=== PATIENT | male | born 1990 | race Caucasian/White ===

== ENCOUNTER 2018-07-03 13:14 | Inpatient (IN) | payer OTHER ==
[2018-07-03 15:27] VITALS: BMI 32.8
--- NOTE | 2018-07-03 18:29 | HP ---
COWS - Scale Resting Pulse: 2= [place] 101-120 Sweatin= No chills or Flushing Restless Observation: 1= Difficult to Sit Still Pupil Size: 1= Pupils >than Normal Bone or Joint Aches: 1= Mild Discomfort Runny Nose/ Eye Tearin= Nasal Congestion GI Upset > 30mins: 2= Nausea/Diarrhea Tremor Observation: 1= Tremor [place], Not Seen Yawning Observation: 4= Several Times/Minute Anxiety or Irritability: 0= None Goose Flesh Skin: 0=Smooth Skin COWS Score: 13 CIWA Score - Admission Criteria OAS Guidelines: Admission for Medically Managed Detox: Requires at least one of the followin. CIWA greater than 12 2. Seizures within the past 24 hours 3. Delirium tremens within the past 24 hours 4. Hallucinations within the past 24 hours 5. Acute intervention needed for co occurring medical disorder 6. Acute intervention needed for co occurring psychiatric disorder 7. Severe withdrawal that cannot be handled at a lower level of care (continued vomiting, continued diarrhea, abnormal vital signs) requiring intravenous medication and/or fluids 8. Admission ROS [facility] Chief Complaint: " I want to detox from heroin" Allergies/Adverse Reactions: Allergies Allergy/AdvReac Type Severity Reaction Status Date / Time No Known Allergies Allergy Verified 07/03/18 18:00 History of Present Illness: Patient is a 28 yo make with hx of nicotine, intravenous heroin, marijuana dependence is here seeking detox. Last detox September 2017 at [facility]. Denies medical problems, reports hx of depression and anxiety. Denies suicidal / homicidal idation or suicide attempts. Overdose x 5, last episode one year ago. Denies hx of seizures or blackouts. thers' Prescriptions Patient Name: Shan Escobar Date: 1990 Address: [facility] [address] [place], [place] [id number] Sex: Male Rx Written Rx Dispensed Drug Quantity Days Supply Prescriber Name 06/27/2018 06/27/2018 clonazepam 0.5 mg tablet 30 15 Ken, Ernesto 06/20/2018 06/21/2018 buprenorphine-naloxone 2-0.5 mg sl tablet 60 30 Ken, Ernesto 05/28/2018 05/28/2018 clonazepam 0.5 mg tablet 60 30 Ken, Ernesto 04/24/2018 04/24/2018 clonazepam 0.5 mg tablet 60 30 Ken, Ernesto 03/26/2018 03/26/2018 clonazepam 0.5 mg tablet 60 30 Ken, Ernesto 02/28/2018 02/28/2018 clonazepam 0.5 mg tablet 60 30 Ken, Ernesto 02/01/2018 02/01/2018 clonazepam 0.5 mg tablet 60 30 Ken, Ernesto Exam Limitations: No Limitations - Ebola screening Have you traveled outside of the country in the last 21 days: No Have you had contact with anyone from an Ebola affected area: No Have you been sick,other than usual withdrawal symptoms: No - Review of Systems Constitutional: Loss of Appetite, Changes in sleep, Weakness, Unintentional Wgt. Loss (30 lbs in past three months) EENT: reports: Nose Congestion Respiratory: reports: No Symptoms reported Cardiac: reports: No Symptoms Reported GI: reports: Diarrhea, Poor Appetite, Poor Fluid Intake : reports: No Symptoms Reported Musculoskeletal: reports: Back Pain Integumentary: reports: No Symptoms Reported Neuro: reports: No Symptoms reported Endocrine: reports: Increased Thirst Hematology: reports: No Symptoms Reported Psychiatric: reports: Orientated x3, Anxious Other Systems: Reviewed and Negative Patient History - Patient Medical History Hx Anemia: No Hx Asthma: No Hx Chronic Obstructive Pulmonary Disease (COPD): No Hx Cancer: No Hx Cardiac Disorders: No Hx Congestive Heart Failure: No Hx Hypertension: No Hx Hypercholesterolemia: No Hx Pacemaker: No HX Cerebrovascular Accident: No Hx Seizures: No Hx Dementia: No Hx Diabetes: No Hx Gastrointestinal Disorders: No Hx Liver Disease: No Hx Genitourinary Disorders: No Hx Sexually Transmitted Disorders: No Hx Renal Disease (ESRD): No Hx Thyroid Disease: No Hx Human Immunodeficiency Virus (HIV): No Hx Hepatitis C: No Hx Depression: Yes Hx Suicide Attempt: No Hx Bipolar Disorder: No Hx Schizophrenia: No - Patient Surgical History Past Surgical History: Yes Hx Neurologic Surgery: No Hx Cataract Extraction: No Hx Cardiac Surgery: No Hx Lung Surgery: No Hx Breast Surgery: No Hx Breast Biopsy: No Hx Abdominal Surgery: No Hx Appendectomy: Yes Hx Cholecystectomy: No Hx Genitourinary Surgery: No Hx Section: No Hx Orthopedic Surgery: No Hx Hysterectomy: No Other Surgical History: circumcision at 5 yo Anesthesia Reaction: No - PPD History Previous Implant?: Yes Documented Results: Negative w/o proof PPD to be Administered?: Yes - Smoking Cessation Smoking history: Current every day smoker Have you smoked in the past 12 months: Yes Aproximately how many cigarettes per day: 10 Hx Chewing Tobacco Use: No Initiated information on smoking cessation: Yes 'Breaking Loose' booklet given: 07/03/18 - Substance & Tx. History Hx Alcohol Use: Yes Hx Substance Use: Yes Substance Use Type: Heroin, Marijuana Hx Substance Use Treatment: Yes (Detox [facility] September 2017) - Substances Abused Heroin Route: Injection Frequency: Daily Amount used: 10 BAGS Age of first use: 22 Date of Last Use: 07/03/18 Marijuana/Hashish Route: Smoking Frequency: Daily Amount used: 2 BLUNTS Age of first use: 16 Date of Last Use: 07/03/18 Family Disease History - Family Disease History Family History: Denies Admission Physical Exam [facility] - Vital Signs Vital Signs: Vital Signs - 24 hr 07/03/18 15:26 Temperature 98 F Pulse Rate 94 H Respiratory 20 Rate Blood Pressure 107/62 - Physical General Appearance: Yes: Appropriately Dressed, Mild Distress, Obese, Sweating, Anxious HEENTM: Yes: EOMI, Hearing grossly Normal, Normal ENT Inspection, Normocephalic , Normal Voice, SISI, Pharynx Normal, Rhinorrhea Respiratory: Yes: Chest Non-Tender, Lungs Clear, Normal Breath Sounds, No Respiratory Distress, No Accessory Muscle Use Neck: Yes: Within Normal Limits Breast: Yes: Breast Exam Deferred Cardiology: Yes: Regular Rhythm, Regular Rate Abdominal: Yes: Normal Bowel Sounds, Non Tender, Flat, Soft Genitourinary: Yes: Within Normal Limits Back: Yes: Normal Inspection Musculoskeletal: Yes: full range of Motion, Gait Steady, Pelvis Stable Extremities: Yes: Within Normal Limits Neurological: Yes: material chaser II-XII NML intact, Fully Oriented, Alert, Motor Strength 5/5, Depressed Affect Integumentary: Yes: Normal Color, Diaphoresis, Track [place] (bilateral anticubital fossa, no infection) - Diagnostic (1) Opioid dependence with withdrawal Current Visit: Yes Status: Acute (2) Nicotine dependence Current Visit: Yes Status: Acute Qualifiers: Nicotine product type: cigarettes (3) Cannabis dependence Current Visit: Yes Status: Acute (4) IVDU (intravenous drug user) Current Visit: Yes Status: Acute Cleared for Admission [facility] - Detox or Rehab [facility] Level of Care: Medically Managed Detox Regimen/Protocol: Methadone BHS Breath Alcohol Content Breath Alcohol Content: 0 Urine Drug Screen - Results Drug Screen Negative: No Urine Drug Screen Results: THC-Marijuana, OPI-Opiates, FEN-Fentanyl Inpatient Rehab Admission - Rehab Decision to Admit Inpatient rehab admission?: No
[2018-07-03] MEDS ORDERED: MENTHOL/PHENOL 1 EACH UD MM PRN (18:37)
[2018-07-03] MEDS ORDERED: MAGNESIUM CITRATE 300 ML BOTTLE PO PRN (18:37)
[2018-07-03] MEDS ORDERED: IBUPROFEN 400 MG TABLET (FP) PO PRN (18:37)
[2018-07-03] MEDS ORDERED: NICOTINE POLACRILEX 2 MG GUM BUC PRN (18:37)
[2018-07-03] MEDS ORDERED: MAGNESIUM HYDROX 2400MG/30ML ORAL SUSPENSION 30 ML CUP PO PRN (18:37)
[2018-07-03] MEDS ORDERED: METHOCARBAMOL 500 MG TABLET PO PRN (18:37)
[2018-07-03] MEDS ORDERED: cloNIDine HCL 0.1 MG TABLET PO PRN (18:37)
[2018-07-03] MEDS ORDERED: ACETAMINOPHEN 325 MG TABLET (FP) PO PRN ×2 (18:37)
[2018-07-03] MEDS ORDERED: METHADONE HCL 10 MG TABLET (FOR DETOX USE ONLY) PO ONE ×2 (19:30→23:00)
[2018-07-03] MEDS: MELATONIN 5 MG TABLETS PO PRN (22:19)
[2018-07-03] MEDS: THIAMINE HCL 100 MG TABLET (FP) PO SCH (22:19)
[2018-07-04] MEDS: MAG HYDROX/AL HYDROX/SIMETH 30 ML UNIT-DOSE CUP PO PRN ×2 (09:49→17:22)
[2018-07-04] MEDS ORDERED: METHADONE HCL 10 MG TABLET (FOR DETOX USE ONLY) PO ONE (10:00)
[2018-07-04] MEDS: PRENATAL VITAMINS W/ FOLIC ACID TABLET (FP) PO SCH (10:03)
[2018-07-04] MEDS: hydrOXYzine PAMOATE 25 MG CAPSULE (FP) PO PRN (10:04)
[2018-07-04] MEDS: NICOTINE 14 MG/24 HOURS TOPICAL PATCH TD SCH (10:04)
[2018-07-04 11:37] LABS: HEMATOCRIT 35.2 % (35.4-49); HEMOGLOBIN 11.9 GM/dL (11.7-16.9); MCH 28.2 pg (25.7-33.7); MCHC 33.8 g/dl (32.0-35.9); MEAN CELL VOLUME 83.5 fl (80-96); MEAN PLT VOLUME 7.8 fl (7.5-11.1); PLATELET COUNT 191 K/MM3 (134-434); RBC 4.22 M/mm3 (4.00-5.60); RDW 12.9 % (11.9-15.9); WHITE BLOOD COUNT 6.4 K/mm3 (4.0-10.0)
[2018-07-04] MEDS: clonazePAM 0.5 MG TABLET PO PRN ×2 (11:43→17:58)
--- NOTE | 2018-07-04 12:02 | EKG ---
Test Reason : Blood Pressure : / mmHG Vent. Rate : 066 BPM Atrial Rate : 066 BPM P-R Int : 156 ms QRS Dur : 094 ms QT Int : 404 ms P-R-T Axes : 059 042 032 degrees QTc Int : 423 ms NORMAL SINUS RHYTHM NORMAL ECG NO PREVIOUS ECGS AVAILABLE Confirmed by DIVINA KENNEY, HAL ([id number]) on 07/04/2018 12:02:41 PM Referred By: Confirmed By:HAL MURCIA MD
[2018-07-04 12:05] LABS: ALK PHOS 46 U/L (45-117); ANION GAP 7 MMOL/L (8-16); BILIRUBIN,TOTAL 0.4 mg/dL (0.2-1); BLOOD UREA NITROGEN 9 mg/dL (7-18); CALCIUM 8.3 mg/dL (8.5-10.1); CHLORIDE 105 mmol/L (98-107); CO2 27 mmol/L (21-32); CREATININE 0.6 mg/dL (0.55-1.3); GLUCOSE,RANDOM 87 mg/dL (74-106); POTASSIUM 3.8 mmol/L (3.5-5.1); SGOT/AST 13 U/L (15-37); SGPT/ALT 15 U/L (13-61); SODIUM 139 mmol/L (136-145); TOT PROT 5.9 g/dl (6.4-8.2)
--- NOTE | 2018-07-04 14:01 | PN ---
BHS COWS - Scale Resting Pulse: 0= [place] 80 or Below Sweatin= Chills/Flushing Restless Observation: 0= Sits Still Pupil Size: 1= Pupils >than Normal Bone or Joint Aches: 1= Mild Discomfort Runny Nose/ Eye Tearin= Nasal Congestion GI Upset > 30mins: 1= Stomach Cramp Tremor Observation of Outstretched Hands: 1= Tremor [place], Not Seen Yawning Observation: 2= >3x During Session Anxiety or Irritability: 1=Feels Anxious/Irritable Goose Flesh Skin: 0=Smooth Skin COWS Score: 9 BHS Progress Note (SOAP) Subjective: abdomen cramping, diarrhea, requesting klonopin prn for opiate detox discontinue clonidine begin klonopin prn for supplemental therapy Objective: 07/04/18 14:06 Vital Signs Temperature 97.4 F L 07/04/18 10:26 Pulse Rate 60 07/04/18 10:26 Respiratory Rate 16 07/04/18 10:26 Blood Pressure 99/66 07/04/18 10:26 O2 Sat by Pulse Oximetry (%) Laboratory Last Values WBC 6.4 K/mm3 (4.0-10.0) 07/04/18 07:30 RBC 4.22 M/mm3 (4.00-5.60) 07/04/18 07:30 Hgb 11.9 GM/dL (11.7-16.9) 07/04/18 07:30 Hct 35.2 % (35.4-49) L 07/04/18 07:30 MCV 83.5 fl (80-96) 07/04/18 07:30 MCH 28.2 pg (25.7-33.7) 07/04/18 07:30 MCHC 33.8 g/dl (32.0-35.9) 07/04/18 07:30 RDW 12.9 % (11.9-15.9) 07/04/18 07:30 Plt Count 191 K/MM3 (134-434) 07/04/18 07:30 MPV 7.8 fl (7.5-11.1) 07/04/18 07:30 Sodium 139 mmol/L (136-145) 07/04/18 07:30 Potassium 3.8 mmol/L (3.5-5.1) 07/04/18 07:30 Chloride 105 mmol/L (98-107) 07/04/18 07:30 Carbon Dioxide 27 mmol/L (21-32) 07/04/18 07:30 Anion Gap 7 MMOL/L (8-16) L 07/04/18 07:30 BUN 9 mg/dL (7-18) 07/04/18 07:30 Creatinine 0.6 mg/dL (0.55-1.3) 07/04/18 07:30 Creat Clearance w eGFR 158.19 (>60) 07/04/18 07:30 Random Glucose 87 mg/dL (74-106) 07/04/18 07:30 Calcium 8.3 mg/dL (8.5-10.1) L 07/04/18 07:30 Total Bilirubin 0.4 mg/dL (0.2-1) 07/04/18 07:30 AST 13 U/L (15-37) L 07/04/18 07:30 ALT 15 U/L (13-61) 07/04/18 07:30 Alkaline Phosphatase 46 U/L (45-117) 07/04/18 07:30 Total Protein 5.9 g/dl (6.4-8.2) L 07/04/18 07:30 Albumin 3.0 g/dl (3.4-5.0) L 07/04/18 07:30 RPR Titer Nonreactive (NONREACTIVE) 07/04/18 07:30 HIV 1&2 Antibody Screen Negative 07/04/18 07:30 HIV P24 Antigen Negative 07/04/18 07:30 lab noted Assessment: 07/04/18 14:06 withdrawal sx Plan: continue detox
--- NOTE | 2018-07-04 16:31 | CONSULT ---
[facility] Psychiatric Consult - Data Date of interview: 07/04/18 Admission source: [facility] Identifying data: First admission to [facility] for this 28 y/o male self-referred for detoxification (cannabis, heroin). Interviewed on 3 . Patient is single, no children, domiciled and employed. Substance Abuse History: Confirmed by the patient in this session. Details in current [facility] report as follows : Smoking history: Current every day smoker. Have you smoked in the past 12 months: Yes. Aproximately how many cigarettes per day: 10. Hx Chewing Tobacco Use: No. Initiated information on smoking cessation: Yes. 'Breaking Loose' booklet given: 07/03/18. - Substance & Tx. History. Hx Alcohol Use: Yes. Hx Substance Use: Yes. Substance Use Type: Heroin, Marijuana. Hx Substance Use Treatment: Yes (Detox [facility] September 2017) . - Substances Abused. Heroin. Route: Injection. Frequency: Daily. Amount used: 10 BAGS. Age of first use: 22. Date of Last Use: 07/03/18. Marijuana/Hashish. Route: Smoking. Frequency: Daily. Amount used: 2 BLUNTS. Age of first use: 16. Date of Last Use: 07/03/18 Medical History: Patient endorses good general health. Psychiatric History: Diagnosed with MDD and Anxiety Disorder. History of psychiatric hospitalizations ([facility]). Patient sees a psychiatrist at the [facility] in [facility] for medication management ( wellbutrin + clonazepam). Doses not recalled. Mr Escobar denies history of suicide attempts. Physical/Sexual Abuse/Trauma History: Patient denies. Additional Comment: Urine Drug Screen Results: THC-Marijuana, OPI-Opiates, FEN- Fentanyl. Noted. Mental Status Exam - Mental Status Exam Alert and Oriented to: Time, Place, Person Cognitive Function: Good Patient Appearance: Well Groomed Mood: Nervous, Withdrawn, Anxious Affect: Mood Congruent, Constricted Patient Behavior: Fatigued, Cooperative Speech Pattern: Clear, Appropriate Voice Loudness: Normal Thought Process: Intact, Goal Oriented Thought Disorder: Not Present Hallucinations: Denies Suicidal Ideation: Denies Homicidal Ideation: Denies Insight/Judgement: Poor Sleep: Fair Appetite: Good Muscle strength/Tone: Normal Gait/Station: Normal Psychiatric Findings - Problem List ([place] 1, 2,3) (1) Opioid dependence with withdrawal Current Visit: Yes Status: Acute (2) Cannabis dependence Current Visit: Yes Status: Chronic (3) Nicotine dependence Current Visit: Yes Status: Chronic Qualifiers: Nicotine product type: cigarettes (4) Substance induced mood disorder Current Visit: Yes Status: Chronic (5) History of depression Current Visit: Yes Status: Chronic Comment: On wellbutrin. Chronically non- adherent to medications. - Initial Treatment Plan Initial Treatment Plan: Psychoeducation. Sleep hygiene. Detoxification in progress. NA meetings. Support. Observation. Survey of pharmacy claims shows refills for wellbutrin SR 150 mg/bid + clonazepam 0.5 mg/bid (issued on 06/16/18 + 06/27/18) at [facility]. Will not restart these medications at this time (patient is going through withdrawal; besides, he admiiited to enduring non -adherence to his medications). Patient is advised to keep his appointments with his caregivers at his [facility] clinic in [place].
[2018-07-04] MEDS: THIAMINE HCL 100 MG TABLET (FP) PO SCH (22:29)
[2018-07-05] MEDS: clonazePAM 0.5 MG TABLET PO PRN ×4 (01:25→21:47)
[2018-07-05] MEDS: MELATONIN 5 MG TABLETS PO PRN ×2 (01:25→22:41)
[2018-07-05] MEDS: BISMUTH SUBSALICYLATE 524 MG/30 ML UD PO PRN ×4 (09:04→22:40)
[2018-07-05] MEDS ORDERED: METHADONE HCL 10 MG TABLET (FOR DETOX USE ONLY) PO ONE (10:00)
[2018-07-05] MEDS: PRENATAL VITAMINS W/ FOLIC ACID TABLET (FP) PO SCH (10:09)
[2018-07-05] MEDS: hydrOXYzine PAMOATE 25 MG CAPSULE (FP) PO PRN (10:09)
[2018-07-05] MEDS: NICOTINE 14 MG/24 HOURS TOPICAL PATCH TD SCH (10:09)
--- NOTE | 2018-07-05 14:12 | PN ---
BHS COWS - Scale Resting Pulse: 0= [place] 80 or Below Sweatin= Chills/Flushing Restless Observation: 0= Sits Still Pupil Size: 0= Normal to Room Light Bone or Joint Aches: 1= Mild Discomfort Runny Nose/ Eye Tearin= Nasal Congestion GI Upset > 30mins: 2= Nausea/Diarrhea Tremor Observation of Outstretched Hands: 1= Tremor [place], Not Seen Yawning Observation: 1= 1-2x During Session Anxiety or Irritability: 1=Feels Anxious/Irritable Goose Flesh Skin: 0=Smooth Skin COWS Score: 8 BHS Progress Note (SOAP) Subjective: vomited x 1 last night after dinner feeling nausea after breakfast but ok now able to tolerate food and fluid well after lunch Objective: 07/05/18 14:18 Vital Signs Temperature 99.4 F 07/05/18 13:31 Pulse Rate 64 07/05/18 13:31 Respiratory Rate 19 07/05/18 13:31 Blood Pressure 107/62 07/05/18 13:31 O2 Sat by Pulse Oximetry (%) Laboratory Last Values WBC 6.4 K/mm3 (4.0-10.0) 07/04/18 07:30 RBC 4.22 M/mm3 (4.00-5.60) 07/04/18 07:30 Hgb 11.9 GM/dL (11.7-16.9) 07/04/18 07:30 Hct 35.2 % (35.4-49) L 07/04/18 07:30 MCV 83.5 fl (80-96) 07/04/18 07:30 MCH 28.2 pg (25.7-33.7) 07/04/18 07:30 MCHC 33.8 g/dl (32.0-35.9) 07/04/18 07:30 RDW 12.9 % (11.9-15.9) 07/04/18 07:30 Plt Count 191 K/MM3 (134-434) 07/04/18 07:30 MPV 7.8 fl (7.5-11.1) 07/04/18 07:30 Sodium 139 mmol/L (136-145) 07/04/18 07:30 Potassium 3.8 mmol/L (3.5-5.1) 07/04/18 07:30 Chloride 105 mmol/L (98-107) 07/04/18 07:30 Carbon Dioxide 27 mmol/L (21-32) 07/04/18 07:30 Anion Gap 7 MMOL/L (8-16) L 07/04/18 07:30 BUN 9 mg/dL (7-18) 07/04/18 07:30 Creatinine 0.6 mg/dL (0.55-1.3) 07/04/18 07:30 Creat Clearance w eGFR 158.19 (>60) 07/04/18 07:30 Random Glucose 87 mg/dL (74-106) 07/04/18 07:30 Calcium 8.3 mg/dL (8.5-10.1) L 07/04/18 07:30 Total Bilirubin 0.4 mg/dL (0.2-1) 07/04/18 07:30 AST 13 U/L (15-37) L 07/04/18 07:30 ALT 15 U/L (13-61) 07/04/18 07:30 Alkaline Phosphatase 46 U/L (45-117) 07/04/18 07:30 Total Protein 5.9 g/dl (6.4-8.2) L 07/04/18 07:30 Albumin 3.0 g/dl (3.4-5.0) L 07/04/18 07:30 RPR Titer Nonreactive (NONREACTIVE) 07/04/18 07:30 HIV 1&2 Antibody Screen Negative 07/04/18 07:30 HIV P24 Antigen Negative 07/04/18 07:30 lab noted Assessment: 07/05/18 14:19 withdrawal sx Plan: continue detox
[2018-07-05 17:42] LABS: PH,URINE 8.5 (5.0-8.0); URINE APPEARANCE CLOUDY; URINE BILIRUBIN NEGATIVE (<2.0 mg/dL); URINE COLOR YELLOW; URINE GLUCOSE (UA) NEGATIVE (NEGATIVE); URINE KETONE NEGATIVE (NEGATIVE); URINE LEUK ESTERASE NEGATIVE (NEGATIVE); URINE NITRITE NEGATIVE (NEGATIVE); URINE PROTEIN NEGATIVE (NEGATIVE); URINE UROBILINOGEN 0.2 mg/dL (0.2-1.0)
[2018-07-05] MEDS: THIAMINE HCL 100 MG TABLET (FP) PO SCH (21:47)
[2018-07-06] MEDS: clonazePAM 0.5 MG TABLET PO PRN ×3 (07:04→22:34)
[2018-07-06] MEDS: PRENATAL VITAMINS W/ FOLIC ACID TABLET (FP) PO SCH (09:58)
[2018-07-06] MEDS: hydrOXYzine PAMOATE 25 MG CAPSULE (FP) PO PRN (09:58)
[2018-07-06] MEDS: NICOTINE 14 MG/24 HOURS TOPICAL PATCH TD SCH (09:58)
[2018-07-06] MEDS ORDERED: METHADONE HCL 10 MG TABLET (FOR DETOX USE ONLY) PO ONE (10:00)
[2018-07-06] MEDS ORDERED: TRIMETHOBENZAMIDE HCL 200MG/2ML INJ IM PRN (12:20)
--- NOTE | 2018-07-06 17:07 | PN ---
BHS Progress Note (SOAP) Subjective: Restless, Anxious, Stomach Cramping, Nausea. Objective: PATIENT A & O X 3, OBSERVED AMBULATING ON UNIT. IN NO ACUTE DISTRESS. 07/06/18 17:05 Vital Signs Temperature 98.6 F 07/06/18 13:53 Pulse Rate 69 07/06/18 13:53 Respiratory Rate 18 07/06/18 13:53 Blood Pressure 112/66 07/06/18 13:53 O2 Sat by Pulse Oximetry (%) Laboratory Tests 07/04/18 07/04/18 07/04/18 07:30 07:30 07:30 WBC 6.4 RBC 4.22 Hgb 11.9 Hct 35.2 L MCV 83.5 MCH 28.2 MCHC 33.8 RDW 12.9 Plt Count 191 MPV 7.8 Sodium 139 Potassium 3.8 Chloride 105 Carbon Dioxide 27 Anion Gap 7 L BUN 9 Creatinine 0.6 Creat Clearance w eGFR 158.19 Random Glucose 87 Calcium 8.3 L Total Bilirubin 0.4 AST 13 L ALT 15 Alkaline Phosphatase 46 Total Protein 5.9 L Albumin 3.0 L Urine Color Urine Appearance Urine pH Ur Specific [place] Urine Protein Urine Glucose (UA) Urine Ketones Urine Blood Urine Nitrite Urine Bilirubin Urine Urobilinogen Ur Leukocyte Esterase Urine RBC (Auto) RPR Titer HIV 1&2 Antibody Screen Negative HIV P24 Antigen Negative 07/04/18 07/05/18 07:30 11:30 WBC RBC Hgb Hct MCV MCH MCHC RDW Plt Count MPV Sodium Potassium Chloride Carbon Dioxide Anion Gap BUN Creatinine Creat Clearance w eGFR Random Glucose Calcium Total Bilirubin AST ALT Alkaline Phosphatase Total Protein Albumin Urine Color Yellow Urine Appearance Cloudy Urine pH 8.5 H Ur Specific [place] 1.020 Urine Protein Negative Urine Glucose (UA) Negative Urine Ketones Negative Urine Blood Negative Urine Nitrite Negative Urine Bilirubin Negative Urine Urobilinogen 0.2 Ur Leukocyte Esterase Negative Urine RBC (Auto) No Result Required. RPR Titer Nonreactive HIV 1&2 Antibody Screen HIV P24 Antigen LABS NOTED. Assessment: 07/06/18 17:06 WITHDRAWAL SYMPTOMS. Plan: CONTINUE DETOX. PRN TIGAN IM FOR NAUSEA. PATIENT REPORTS THAT HE HAS SUPPLY OF PRESCRIBED SUBOXONE AT HOME, ALTHOUGH HE DID NOT TAKE IT FOR SEVERAL DAYS PRIOR TO THIS DETOX ADMISSION. PATIENT IS HERE FOR DETOX FROM [facility] (HEROIN). PATIENT ADVISED TO CONSULT PRESCRIBING MEDICAL PROVIDER DR. REY ([facility], [place], [place]) AFTER DISCHARGE FROM DETOX UNIT PRIOR TO RESUMING TAKING SUBOXONE. PATIENT VERBALIZED UNDERSTANDING OF RECOMMENDATION.
[2018-07-06] MEDS: THIAMINE HCL 100 MG TABLET (FP) PO SCH (22:34)
[2018-07-07] MEDS ORDERED: METHADONE HCL 5 MG TABLET (FOR DETOX USE ONLY) PO ONE (06:00)
[2018-07-07] MEDS: clonazePAM 0.5 MG TABLET PO PRN (06:08)
[2018-07-07 06:14] VITALS: BP 99/54; PULSE 50; TEMP 97.6
--- NOTE | 2018-07-07 20:36 | DS ---
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 THUS, PRE-DISCHARGE MEDICAL ASSESSMENT UNABLE TO BE DONE. YESTERDAY, PATIENT REPORTED THAT HE WILL RETURN HOME AND TO WORK AFTER DISCHARGE FROM DETOX UNIT. PER PATIENT'S COMMISSIONS SPECIALIST (Reji PIEDRA), PATIENT ALSO RETURNING TO [facility] ([facility] OP PROGRAM ([place], [place] ) FOR SUBSTANCE ABUSE AND MENTAL HEALTH SERVICES OUTPATIENT PROGRAM FOR AFTERCARE. YESTERDAY (07/06/2018), PATIENT REPORTED THAT HE HAS SUPPLY OF PRESCRIBED SUBOXONE AT HOME, ALTHOUGH HE DID NOT TAKE IT FOR SEVERAL DAYS PRIOR TO THIS DETOX ADMISSION. PATIENT WAS DETOXED FROM [facility] DURING THIS DETOX ADMISSION. PATIENT INQUIRED ABOUT RESUMING PRESCRIBED SUBOXONE AFTER DISCHARGE FROM DETOX UNIT. PATIENT STRONGLY ADVISED TO CONSULT PRESCRIBING MEDICAL PROVIDER DR. REY ([facility], [place], [place]) AFTER DISCHARGE FROM DETOX UNIT PRIOR TO RESUMING TAKING SUBOXONE. PATIENT VERBALIZED UNDERSTANDING OF RECOMMENDATION. Pertinent Past History: Nicotine Dependence, I.V.D.U. (Intravenous Drug User), History Of Depression. - Physical Exam Results Vital Signs: Vital Signs Temperature 97.6 F 07/07/18 06:14 Pulse Rate 50 L 07/07/18 06:14 Respiratory Rate 18 07/07/18 06:14 Blood Pressure 99/54 L 07/07/18 06:14 O2 Sat by Pulse Oximetry (%) Pertinent Admission Physical Exam Findings: WITHDRAWAL SYMPTOMS. Laboratory Tests 07/04/18 07/04/18 07/04/18 07:30 07:30 07:30 WBC 6.4 RBC 4.22 Hgb 11.9 Hct 35.2 L MCV 83.5 MCH 28.2 MCHC 33.8 RDW 12.9 Plt Count 191 MPV 7.8 Sodium 139 Potassium 3.8 Chloride 105 Carbon Dioxide 27 Anion Gap 7 L BUN 9 Creatinine 0.6 Creat Clearance w eGFR 158.19 Random Glucose 87 Calcium 8.3 L Total Bilirubin 0.4 AST 13 L ALT 15 Alkaline Phosphatase 46 Total Protein 5.9 L Albumin 3.0 L Urine Color Urine Appearance Urine pH Ur Specific [place] Urine Protein Urine Glucose (UA) Urine Ketones Urine Blood Urine Nitrite Urine Bilirubin Urine Urobilinogen Ur Leukocyte Esterase Urine RBC (Auto) RPR Titer HIV 1&2 Antibody Screen Negative HIV P24 Antigen Negative 07/04/18 07/05/18 07:30 11:30 WBC RBC Hgb Hct MCV MCH MCHC RDW Plt Count MPV Sodium Potassium Chloride Carbon Dioxide Anion Gap BUN Creatinine Creat Clearance w eGFR Random Glucose Calcium Total Bilirubin AST ALT Alkaline Phosphatase Total Protein Albumin Urine Color Yellow Urine Appearance Cloudy Urine pH 8.5 H Ur Specific [place] 1.020 Urine Protein Negative Urine Glucose (UA) Negative Urine Ketones Negative Urine Blood Negative Urine Nitrite Negative Urine Bilirubin Negative Urine Urobilinogen 0.2 Ur Leukocyte Esterase Negative Urine RBC (Auto) No Result Required. RPR Titer Nonreactive HIV 1&2 Antibody Screen HIV P24 Antigen LABS NOTED. - Treatment Hospital Course: Detox Protocol Followed, Detoxed Safely, Responded well, Discharged Condition Good Patient has Accepted a Rehab Referral to: PT. RETURNING TO [facility] FOR SUBOXONE MAINTENANCE. - Medication Discharge Medications: Ambulatory Orders NK [No Known Home Medication] 07/03/18 - Diagnosis (1) IVDU (intravenous drug user) Status: Acute (2) Opioid dependence with withdrawal Status: Acute (3) Cannabis dependence Status: Chronic (4) History of depression Status: Chronic (5) Nicotine dependence Status: Chronic Qualifiers: Nicotine product type: cigarettes Substance use status: uncomplicated Qualified Code(s): F17.210 - Nicotine dependence, cigarettes, uncomplicated (6) Substance induced mood disorder Status: Chronic - AMA Did Patient Leave Against Medical Advice: No
== END 2018-07-07 07:10 | disposition home or self-care (01) | DRG 773 ==
LOC: YASAS 13:14 → Y3N 19:03
PROVIDERS: ADMIT Surgery; ATTEND Surgery
PROC: HZ2ZZZZ Detoxification Services for Substance Abuse Treatment (ICD-10-PCS; principal; 2018-07-03)
DX: F11.23 Opioid dependence with withdrawal (principal); F12.20 Cannabis dependence, uncomplicated; F17.210 Nicotine dependence, cigarettes, uncomplicated; F19.24 Other psychoactive substance dependence with psychoactive substance-induced mood disorder; Z86.59 Personal history of other mental and behavioral disorders
CPT/HCPCS: 36415; 80053; 81003; 85027; 86593; 87389; 93005; 93010